=== PATIENT | female | born 1965 ===

== ENCOUNTER 2025-03-03 18:05 | Emergency (ER) | payer BC ==
[2025-03-03] MEDS: Bacitracin Oint 1 GM U/D Packet TOP ONE (18:41)
== END 2025-03-03 18:51 | disposition home or self-care (01) ==
LOC: DL.ED 18:05
DX: S61.011A Laceration without foreign body of right thumb without damage to nail, initial encounter (principal); W26.0XXA Contact with knife, initial encounter; Y93.89 Activity, other specified
CPT/HCPCS: 12001; 99282; A9270; J2003